=== PATIENT | male | born 1945 | race Caucasian/White ===

== ENCOUNTER 2016-07-23 10:12 | Inpatient (IN) | payer OTHER, MEDICARE ==
[~2016-07-23] VITALS: Ht 172.7 cm; Wt 61.5 kg
[2016-07-23] VITALS (10 sets, daily range): BP systolic 117–155; BP diastolic 67–90; PULSE 68–110; RESP 14–24; TEMP 97.3–98.4; O2SAT 82–100
[~2016-07-23 10:12] MED LIST: ALBU.5I INH; ALLO100T PO; ASPI81TA82 PO; ATOR10 PO; AZIT250T43 PO; DUONSOL2 NEB; ENAL10TA7 PO; FINA1TAB2 PO; FURO20 PO; LORA1TAB PO; METH4PAK PO; POTA10IN2 PO; TAMS0.4C4 PO
--- NOTE | 2016-07-23 10:43 | PD ---
HPI Chief Complaint: Fall Time Seen by Provider: 10:42 Travel History International Travel<30 days: No Contact w/Intl Traveler<30days: No Traveled to known affect area: No History of Present Illness HPI 70-year-old male came to the emergency room with history of being lethargic and altered mental status for past 4 days and progressively worsening. His brought him in. She is the one who is giving all the history since patient does seem quite lethargic. He fell one week ago and in the process ended up injuring his right side. Was complaining of pain on the right side and 4 days ago he fell again when he hit the back of his head and had a large laceration with bleeding. Patient on both occasions as per the had refused to come to the emergency room. Today he told his that he was extremely tired and he did not want to wake up. That's when the decided to bring him to the emergency room. Vital signs were suggestive of tachycardia. Patient kept falling asleep in the middle of answering my questions. As per the he has history of COPD and is a heavy smoker. He requires 2 L of oxygen via nasal cannula at home during night. 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 PFSH Past Medical History Narrative Medical List of his past medical history as reviewed from the nursing note. Anxiety: Yes Cancer: Yes (PROSTATE) Cardiac Catheterization: Yes Congestive Heart Failure: Yes COPD: Yes Diminished Hearing: No Endocrine: No GERD: Yes Hypertension: Yes Immune Disorder: No Musculoskeletal: No Neurologic: No Respiratory: Yes Radiation Therapy: Yes (SEED IMPLANT) Tetanus Vaccination: > 5 Years Influenza Vaccination: No Past Surgical History Eye Surgery: Yes (LEFT EYE, VESSELL OCCLUSION NO SURGERY) Prostatectomy: Yes Social History Alcohol Use: Yes (VERY LITTLE ) Tobacco Use: Yes (< 1PPD) Substance Use: No Allergies-Medications (Allergen,Severity, Reaction): Coded Allergies: Levaquin (Verified Allergy, Severe, nerve damage, 07/23/16) Comments List of his allergies reviewed from the nursing note. Reported Meds & Prescriptions Reported Meds & Active Scripts Active Reported Tamsulosin (Tamsulosin HCl) 0.4 Mg Cap 0.4 Mg PO DAILY Ativan (Lorazepam) 1 Mg Tab 1 Mg PO Q8H Lasix (Furosemide) 40 Mg Tab 40 Mg PO DAILY Prednisone 5 Mg Tab 5 Mg PO DAILY Multi Vitamin (Multiple Vitamin) 1 Tab Tab 1 Tab PO DAILY Aspirin Adult Low Strength (Aspirin) 81 Mg Tabdr 81 Mg PO DAILY Finasteride 5 Mg Tab 5 Mg PO DAILY Do not crush. Symbicort Inh (Budesonide/Formoterol Fumarate) 160-4.5 Mcg/Act Aero 2 Puff INH Q12HR Ventolin Hfa 18 GM Inh (Albuterol Sulfate) 90 Mcg/Act Aer 1-2 Puff INH Q4-6H PRN Allopurinol 100 Mg Tab 100 Mg PO DAILY Nexium (Esomeprazole DR) 40 Mg Capdr 40 Mg PO DAILY Atorvastatin (Atorvastatin Calcium) 10 Mg Tab 10 Mg PO HS Regranex Topical (Becaplermin) 0.01% Gel 1 Applic TOPICAL HS Apply a centimeter length of gel and spread over entire foot ulcer area. Leave gel on for approximately 12 hours/day. Zoloft (Sertraline HCl) 100 Mg Tab 200 Mg PO DAILY Narrative Medication List of his home medications reviewed from the nursing note. Review of Systems Except as stated in HPI: all other systems reviewed are Neg Physical Exam Narrative GENERAL: Lethargic, altered mental status, talking with a slurred speech, moderate distress, looks older than his age SKIN: Warm and dry. Multiple ecchymosis/bruising on all 4 extremities of different stages. HEAD: Atraumatic. Normocephalic. EYES: Pupils equal and round. No scleral icterus. No injection or drainage. ENT: No nasal bleeding or discharge. Mucous membranes pink and moist. NECK: Trachea midline. No JVD. CARDIOVASCULAR: Regular rate and rhythm. No murmur appreciated. RESPIRATORY: No accessory muscle use. Clear to auscultation. Breath sounds equal bilaterally. GASTROINTESTINAL: Abdomen soft, non-tender, nondistended. Hepatic and splenic margins not palpable. MUSCULOSKELETAL: No obvious deformities. No clubbing. No cyanosis. No edema. NEUROLOGICAL: GCS of 12. No obvious cranial nerve deficits. Motor grossly within normal limits. Slurred speech. PSYCHIATRIC: Unable to assess. Data Data Last Documented VS Vital Signs Date Time Temp Pulse Resp B/P Pulse Ox O2 Delivery O2 Flow Rate FiO2 07/23/16 13:31 98.4 07/23/16 12:38 106 18 149/75 100 Room Air 07/23/16 10:24 2 Orders Electrocardiogram (07/23/16 ) Basic Metabolic Panel (Bmp) (07/23/16 10:57) Complete Blood Count With Diff (07/23/16 10:57) Prothrombin Time / Inr (Pt) (07/23/16 10:57) Act Partial Throm Time (Ptt) (07/23/16 10:57) Type And Screen (07/23/16 10:57) Ct Brain W/O Iv Contrast(Rout) (07/23/16 10:57) Ct Cerv Spine W/O Contrast (07/23/16 10:57) Iv Access Insert/Monitor (07/23/16 10:57) Ecg Monitoring (07/23/16 10:57) Oximetry (07/23/16 10:57) Oxygen Administration (07/23/16 10:57) Sodium Chlor 0.9% 1000 Ml Inj (Ns 1000 M (07/23/16 10:57) Sodium Chloride 0.9% Flush (Ns Flush) (07/23/16 11:00) Ct Abd/Pel W/O Iv Contrast (07/23/16 ) Ct Thorax/ Chest Wo Iv Contras (07/23/16 ) Comprehensive Metabolic Panel (07/23/16 10:57) Urinalysis - C+S If Indicated (07/23/16 10:57) Creatine Kinase (Cpk) (07/23/16 11:04) Ammonia (07/23/16 12:20) Potassium Chlor 10 Meq Premix (Kcl 10 Me (07/23/16 12:45) Potassium Chloride (Kcl) (07/23/16 12:45) Admit Order (Ed Use Only) (07/23/16 13:40) Troponin I (07/23/16 13:40) Lactic Acid (07/23/16 13:40) Labs Laboratory Tests Test 07/23/16 07/23/16 11:11 12:32 White Blood Count 7.8 TH/MM3 Red Blood Count 4.41 MIL/MM3 Hemoglobin 14.0 GM/DL Hematocrit 41.3 % Mean Corpuscular Volume 93.7 FL Mean Corpuscular Hemoglobin 31.8 PG Mean Corpuscular Hemoglobin 34.0 % Concent Red Cell Distribution Width 15.2 % Platelet Count 186 TH/MM3 Mean Platelet Volume 8.3 FL Neutrophils (%) (Auto) 85.7 % Lymphocytes (%) (Auto) 8.0 % Monocytes (%) (Auto) 5.7 % Eosinophils (%) (Auto) 0.4 % Basophils (%) (Auto) 0.2 % Neutrophils # (Auto) 6.7 TH/MM3 Lymphocytes # (Auto) 0.6 TH/MM3 Monocytes # (Auto) 0.4 TH/MM3 Eosinophils # (Auto) 0.0 TH/MM3 Basophils # (Auto) 0.0 TH/MM3 CBC Comment DIFF FINAL Differential Comment Prothrombin Time 10.6 SEC Prothromb Time International 1.0 RATIO Ratio Activated Partial 30.8 SEC Thromboplast Time Sodium Level 138 MEQ/L Potassium Level 2.9 MEQ/L Chloride Level 93 MEQ/L Carbon Dioxide Level 38.1 MEQ/L Anion Gap 7 MEQ/L Blood Urea Nitrogen 21 MG/DL Creatinine 1.47 MG/DL Estimat Glomerular Filtration 47 ML/MIN Rate Random Glucose 113 MG/DL Calcium Level 9.3 MG/DL Total Bilirubin 0.4 MG/DL Aspartate Amino Transf 18 U/L (AST/SGOT) Alanine Aminotransferase 22 U/L (ALT/SGPT) Alkaline Phosphatase 107 U/L Total Creatine Kinase 68 U/L B-Type Natriuretic Peptide 123 PG/ML Total Protein 6.4 GM/DL Albumin 3.2 GM/DL Blood Type O POSITIVE Antibody Screen NEGATIVE Blood Bank Comment Urine Color LIGHT-YELLOW Urine Turbidity HAZY Urine pH 8.0 Urine Specific [place] 1.007 Urine Protein NEG mg/dL Urine Glucose (UA) NEG mg/dL Urine Ketones NEG mg/dL Urine Occult Blood NEG Urine Nitrite NEG Urine Bilirubin NEG Urine Urobilinogen LESS THAN 2.0 MG/DL Urine Leukocyte Esterase MOD Urine RBC 1 /hpf Urine WBC 2 /hpf Urine Squamous Epithelial 1 /hpf Cells Urine Hyaline Casts 1 /lpf Microscopic Urinalysis Comment CULT NOT INDICATED Ammonia LESS THAN 10 MCMOL/L MDM Medical Decision Making Medical Screen Exam Complete: Yes Emergency Medical Condition: Yes Medical Record Reviewed: Yes Interpretation(s) Twelve-lead EKG was reviewed by me. Normal sinus rhythm, left axis deviation, multiple PVCs, tachycardia. Heart rate of 107 bpm. Differential Diagnosis Hyperammonemia, nitrite abnormalities, intracranial bleed, sepsis Narrative Course 1:38 PM blood test results of back and shows renal insufficiency. CAT scans are in general within normal limit except for CT thorax which shows right pleural effusion. I will order lactic acid and troponin as well. Potassium was low which I am replacing. I spoke with the resident and I have admitted this patient. Procedures EKG Prior to Arrival: Yes Diagnosis Primary Impression: Altered mental status Qualified Code: R40.0 - Somnolence Additional Impressions: Dehydration Acute hypokalemia Renal insufficiency Rib fracture Qualified Code: S22.31XA - Closed fracture of one rib of right side, initial encounter Pleural effusion Admitting Information Admitting Physician Requests: Admit Frank Sweeney MD Jul 23, 2016 10:43
[2016-07-23] MEDS ORDERED: SODIUM CHLOR 0.9% 1000 ML INJ 1,000 ML IV SCH (10:57)
[2016-07-23] MEDS ORDERED: SODIUM CHLORIDE 0.9% FLUSH 5 ML FLUSH IVF PRN (11:00)
[2016-07-23] MEDS ORDERED: VENTAER INH (11:03)
[2016-07-23] MEDS ORDERED: ZOLO100T PO (11:03)
[2016-07-23] MEDS ORDERED: ALLO100T PO (11:03)
[2016-07-23] MEDS ORDERED: ATOR10TA15 PO (11:03)
[2016-07-23] MEDS ORDERED: NEXI40CA PO (11:03)
[2016-07-23] MEDS ORDERED: REGR0.01 TOPICAL (11:03)
[2016-07-23] MEDS ORDERED: FURO1TAB60 PO (11:04)
[2016-07-23] MEDS ORDERED: LORA-474 PO (11:04)
[2016-07-23] MEDS ORDERED: MULT-135 PO (11:04)
[2016-07-23] MEDS ORDERED: PRED5TAB PO (11:04)
[2016-07-23] MEDS ORDERED: FINA5TAB2 PO (11:04)
[2016-07-23] MEDS ORDERED: SYMB160A INH (11:04)
[2016-07-23] MEDS ORDERED: ASPI1TAB91 PO (11:04)
[2016-07-23] MEDS ORDERED: TAMS0.4C4 PO (11:04)
[2016-07-23 11:28] LABS: AUTOMATED NEUTROPHIL # 6.7 TH/MM3 (1.8-7.7); BASOPHIL % 0.2 % (0.0-2.0); EOSINOPHIL % 0.4 % (0.0-4.0); HEMATOCRIT 41.3 % (39.0-51.0); HEMO FLAGS DIFF FINAL; LYMPHOCYTE # 0.6 TH/MM3 (1.0-4.8); MEAN CELL VOLUME 93.7 FL (80.0-100.0); MEAN CORPUSCULAR HEMOGLOBIN 31.8 PG (27.0-34.0); MONO % 5.7 % (0.0-8.0); NEUT % 85.7 % (16.0-70.0); PLATELET COUNT 186 TH/MM3 (150-450); RED BLOOD COUNT 4.41 MIL/MM3 (4.50-5.90); RED CELL DISTRIBUTION WIDTH 15.2 % (11.6-17.2); WHITE BLOOD COUNT 7.8 TH/MM3 (4.0-11.0)
[2016-07-23 11:34] LABS: APTT (PATIENT) 30.8 SEC (24.3-30.1); PROTHROMBIN TIME - PATIENT 10.6 SEC (9.8-11.6)
[2016-07-23 12:12] LABS: ALKALINE PHOSPHATASE 107 U/L (45-117); ALT (GPT) 22 U/L (12-78); ANION GAP 7 MEQ/L (5-15); AST (GOT) 18 U/L (15-37); BICARBONATE 38.1 MEQ/L (21.0-32.0); BLOOD UREA NITROGEN 21 MG/DL (7-18); CHLORIDE 93 MEQ/L (98-107); GLOMERULAR FILTRATION RATE 47 ML/MIN (>89); SODIUM (NA) 138 MEQ/L (136-145); TOTAL BILIRUBIN ADULT 0.4 MG/DL (0.2-1.0)
[2016-07-23 12:16] LABS: POTASSIUM 2.9 MEQ/L (3.5-5.1)
--- NOTE | 2016-07-23 12:34 | RADRPT ---
EXAM DATE/TIME: 07/23/2016 11:34 [facility] COMPARISON: No previous studies available for comparison. INDICATIONS : Fall one week ago now patient has been confused for four days. RADIATION DOSE: 54.70 CTDIvol (mGy) MEDICAL HISTORY : Congestive hearth failure. Hypertension. Chronic obstructive pulmonary disease. Renal disease, prosta te ca SURGICAL HISTORY : Prostatectomy. ENCOUNTER: Initial ACUITY: 4 - 6 days PAIN SCALE: 8/10 LOCATION: cranial TECHNIQUE: Multiple contiguous axial images were obtained of the head. Using automated exposure control and adj ustment of the mA and/or kV according to patient size, radiation dose was kept as low as reasonably a chievable to obtain optimal diagnostic quality images. FINDINGS: CEREBRUM: The ventricles are normal for age. Periventricular areas of diminished attenuation are characteristi c of significant small vessel ischemic demyelination. No evidence of midline shift, mass lesion, hemo rrhage or acute infarction. No extra-axial fluid collections are seen. POSTERIOR FOSSA: The cerebellum and brainstem are intact. The 4th ventricle is midline. The cerebellopontine angle i s unremarkable. EXTRACRANIAL: The visualized portion of the orbits is intact. Minimal chronic sinus disease in the left sphenoid SKULL: The calvaria is intact. No evidence of skull fracture. CONCLUSION: 1. Chronic changes with significant periventricular small vessel ischemic demyelination. 2. No acute intracranial process, trauma or fracture. Higinio Mcdonald MD on July 23, 2016 at 12:31 Board Certified Radiologist. This report was verified electronically.
--- NOTE | 2016-07-23 12:40 | RADRPT ---
EXAM DATE/TIME: 07/23/2016 11:34 [facility] COMPARISON: No previous studies available for comparison. INDICATIONS : Fall one week ago rt side pain, confusion RADIATION DOSE: 22.98 CTDIvol (mGy) MEDICAL HISTORY : Congestive heart failure. Hypertension. Chronic obstructive pulmonary disease.Renal disease prostate ca SURGICAL HISTORY : Prostatectomy. ENCOUNTER: Initial ACUITY: 4 - 6 days PAIN SCALE: 8/10 LOCATION: Right neck TECHNIQUE: Volumetric scanning of the cervical spine was performed. Multiplanar reconstructions in the sagittal, coronal and oblique axial planes were performed. Using automated exposure control and adjustment o f the mA and/or kV according to patient size, radiation dose was kept as low as reasonably achievable to obtain optimal diagnostic quality images. FINDINGS: There is retrolisthesis of C4 relationship to the adjacent levels. The atlantoaxial relationship is w ithin normal limits. There is no prevertebral soft tissue swelling present. No fracture or dislocatio n is identified. There is degenerative disc disease at C3-C4 through C6-C7, most severe at C3-C4. The visualized portions of the posterior fossa, paraspinous soft tissues, and upper lung zones demons trate no acute abnormality. CONCLUSION: Multilevel degenerative change of the cervical spine. No fracture or acute cervical spine abnormality is identified. Jevon Cam MD on July 23, 2016 at 12:35 Board Certified Radiologist. This report was verified electronically.
[2016-07-23] MEDS ORDERED: POTASSIUM CHLORIDE 20 MEQ CONTROLLED RELEASE TAB PO ONE (12:45)
[2016-07-23] MEDS ORDERED: POTASSIUM CHLOR 10 MEQ PREMIX 100 ML IV ONE (12:45)
[2016-07-23 12:51] LABS: BLOOD, URINE NEG (NEG); COMMENT (UR) CULT NOT INDICATED; CULTURE IF INDICATED CULT NOT INDICATED; GLUCOSE,URINE NEG (NEG); HYALINE CAST, URINE 1 /lpf (RARE); KETONE, URINE NEG (NEG); NITRITE,URINE NEG (NEG); SQUAMOUS EPITHELIAL CELL URINE 1 /hpf (0-5); URINE COLOR LIGHT-YELLOW (YELLW/STRAW)
--- NOTE | 2016-07-23 13:42 | RADRPT ---
EXAM DATE/TIME: 07/23/2016 11:52 [facility] COMPARISON: CHEST SINGLE AP, November 26, 2013, 4:51. INDICATIONS : Fall one week ago,right rib pain. RADIATION DOSE: 11.88 CTDIvol (mGy) ; Combined studies - Thorax/Abdomen/Pelvis MEDICAL HISTORY : Chronic obstructive pulmonary disease. Congestive heart failure. Hypertension. Prostate ca renal dise ase SURGICAL HISTORY : Prostatectomy. ENCOUNTER: Initial ACUITY: 1 day PAIN SCALE: 8/10 LOCATION: Right chest TECHNIQUE: Volumetric scanning of the chest was performed. Using automated exposure control and adjustment of t he mA and/or kV according to patient size, radiation dose was kept as low as reasonably achievable to obtain optimal diagnostic quality images. FINDINGS: LUNGS: Bilateral emphysematous changes with volume loss in the right hemithorax. Right-sided effusion concom itant atelectatic changes. Nonspecific nodular densities in the superior segments of both lower lobes . PLEURAE: Small right-sided effusion. MEDIASTINUM: The heart and great vessels demonstrate no acute abnormality. There is no mediastinal or hilar lymph adenopathy. Dense atherosclerotic calcification of the coronary arteries AXILLAE: Within normal limits. No lymphadenopathy. MUSCULOSKELETAL: Chronic compression fractures of what I believe is T5 and T6 with a vertebral plana configuration of T5. There is an acute fracture at the medial aspect of the hand right. MISCELLANEOUS: The visualized upper abdominal organs demonstrate no acute abnormality. A small sliding-type hiatal h ernia CONCLUSION: 1. Acute fracture through the medial aspect of the right T10 rib. 2. Chronic appearing compression fractures through what I believe is T5 and T6 with a vertebral plana configuration of T5. 3. Line loss in the right hemithorax with bilateral emphysematous changes, nonspecific parenchymal no dular densities in the superior segments of both lower lobes and a small right-sided effusion. 4. Small hiatal hernia. Higinio Mcdonald MD on July 23, 2016 at 13:11 Board Certified Radiologist. This report was verified electronically.
[2016-07-23] MEDS ORDERED: SODIUM CHLORID 0.9% 500 ML INJ 500 ML IV ONE (14:00)
--- NOTE | 2016-07-23 14:07 | HHI.HP ---
HPI Service Family Medicine Primary Care Physician Ricardo Vázquez MD Admission Diagnosis altered mental status, dehydration, hypokalemia Diagnoses: International Travel<30 Days: No Contact w/Intl Traveler<30days: No Known Affected Area: No History of Present Illness 70y male with CHF, COPD, lower extremity weakness, and repeated falls presents with altered mental status x4 days and lethargy. is in room and contributes the majority of the history. At baseline, pt is alert and oriented , walks with walker, and uses 2L home O2 at night. He is limited in his ADLs secondary to lower extremity weakness and neuropathy caused by Levaquin toxicity 11/2015 for URI. Was in rehab for 9 weeks recovering from this event and doing better, until fall one week ago and then again three days ago (Wednesday) . Both of these falls were mechanical in nature from the patient stepping down from the kitchen to linoleum while using his walker. At first fall, landed on R side. At second fall, hit head, causing significant bleeding and was disoriented, but refused to go to doctor. He has been mumbling more over the past week, per . Pt believes he is thinking as he normally does and is chiefly concerned with pain in R torso. (Maty Buck MD R1) Review of Systems ROS Limitations: Poor Historian Constitutional: DENIES: Fever, Chills Respiratory: DENIES: Sputum production, Shortness of breath Cardiovascular: DENIES: Chest pain Genitourinary: COMPLAINS OF: Urinary incontinence Neurologic: COMPLAINS OF: Localized weakness, Speech Problems (mumbling), Poor Balance Psychiatric: COMPLAINS OF: Anxiety, Confusion, Depression, Agitation (Maty Buck MD R1) Past Family Social History Past Medical History COPD Neuropathy Gout Ulcer, L foot (since 08/2015) HLD CHF Depression/Anxiety Hx prostate cancer (1998) Past Surgical History Per EMR Reported Medications Tamsulosin (Tamsulosin HCl) 0.4 Mg Cap 0.4 Mg PO DAILY Ativan (Lorazepam) 1 Mg Tab 1 Mg PO Q8H Lasix (Furosemide) 40 Mg Tab 40 Mg PO DAILY Prednisone 5 Mg Tab 5 Mg PO DAILY Multi Vitamin (Multiple Vitamin) 1 Tab Tab 1 Tab PO DAILY Aspirin Adult Low Strength (Aspirin) 81 Mg Tabdr 81 Mg PO DAILY Finasteride 5 Mg Tab 5 Mg PO DAILY Do not crush. Symbicort Inh (Budesonide/Formoterol Fumarate) 160-4.5 Mcg/Act Aero 2 Puff INH Q12HR Ventolin Hfa 18 GM Inh (Albuterol Sulfate) 90 Mcg/Act Aer 1-2 Puff INH Q4-6H PRN Allopurinol 100 Mg Tab 100 Mg PO DAILY Nexium (Esomeprazole DR) 40 Mg Capdr 40 Mg PO DAILY Atorvastatin (Atorvastatin Calcium) 10 Mg Tab 10 Mg PO HS Regranex Topical (Becaplermin) 0.01% Gel 1 Applic TOPICAL HS Apply a centimeter length of gel and spread over entire foot ulcer area. Leave gel on for approximately 12 hours/day. 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 Lying on R side, semi-curled. Appears to be positioned uncomfortably. Irritated. DERM: Warm and dry. Bruises in various stages healing on forearms bilaterally, knees, shins. L [place] with very prominant scabbing and erythema. HEENT: PERRL. EOMI. MMM. Ptosis R eyelid CV: RRR. No murmurs or gallops. RESP: Breathing well on nasal canula GI: Abdomen non-tender, non-distended MSK: Moves all four limbs against gravity. Ulcer of L ball of foot ~2cm x 1cm oval, with ogden purulent discharge. Covered in bandage c/d/i. NEURO: AAOx3 to person, city/state, year/month/day+2, and reason for hospitalization. Sensation intact to light touch in V1-V3, UE, LE. Able to lift limbs against gravity. PSYCH: At times, not answers question asked secondary to hearing difficulty. Will answer appropriately when question repeated. Suspect baseline dementia. Laboratory Laboratory Tests Test 07/23/16 07/23/16 11:11 12:32 White Blood Count 7.8 Red Blood Count 4.41 Hemoglobin 14.0 Hematocrit 41.3 Mean Corpuscular Volume 93.7 Mean Corpuscular Hemoglobin 31.8 Mean Corpuscular Hemoglobin 34.0 Concent Red Cell Distribution Width 15.2 Platelet Count 186 Mean Platelet Volume 8.3 Neutrophils (%) (Auto) 85.7 Lymphocytes (%) (Auto) 8.0 Monocytes (%) (Auto) 5.7 Eosinophils (%) (Auto) 0.4 Basophils (%) (Auto) 0.2 Neutrophils # (Auto) 6.7 Lymphocytes # (Auto) 0.6 Monocytes # (Auto) 0.4 Eosinophils # (Auto) 0.0 Basophils # (Auto) 0.0 CBC Comment DIFF FINAL Differential Comment Prothrombin Time 10.6 Prothromb Time International 1.0 Ratio Activated Partial 30.8 Thromboplast Time Sodium Level 138 Potassium Level 2.9 Chloride Level 93 Carbon Dioxide Level 38.1 Anion Gap 7 Blood Urea Nitrogen 21 Creatinine 1.47 Estimat Glomerular Filtration 47 Rate Random Glucose 113 Calcium Level 9.3 Total Bilirubin 0.4 Aspartate Amino Transf 18 (AST/SGOT) Alanine Aminotransferase 22 (ALT/SGPT) Alkaline Phosphatase 107 Total Creatine Kinase 68 Total Protein 6.4 Albumin 3.2 Blood Type O POSITIVE Antibody Screen NEGATIVE Blood Bank Comment Urine Color LIGHT-YELLOW Urine Turbidity HAZY Urine pH 8.0 Urine Specific [place] 1.007 Urine Protein NEG Urine Glucose (UA) NEG Urine Ketones NEG Urine Occult Blood NEG Urine Nitrite NEG Urine Bilirubin NEG Urine Urobilinogen LESS THAN 2.0 Urine Leukocyte Esterase MOD Urine RBC 1 Urine WBC 2 Urine Squamous Epithelial 1 Cells Urine Hyaline Casts 1 Microscopic Urinalysis Comment CULT NOT INDICATED Ammonia LESS THAN 10 (Maty Buck MD R1) Result Diagram: 07/23/16 1111 07/23/16 1111 Imaging Last Impressions Head CT 07/23/16 1057 Signed Impressions: Service Date/Time: June 11:34 - CONCLUSION: 1. Chronic changes with significant periventricular small vessel ischemic demyelination. 2. No acute intracranial process, trauma or fracture. Higinio Mcdonald MD Cervical Spine CT 07/23/16 1057 Signed Impressions: Service Date/Time: June 11:34 - CONCLUSION: Multilevel degenerative change of the cervical spine. No fracture or acute cervical spine abnormality is identified. Jevon Cam MD Chest CT 07/23/16 0000 Signed Impressions: Service Date/Time: June 11:52 - CONCLUSION: 1. Acute fracture through the medial aspect of the right T10 rib. 2. Chronic appearing compression fractures through what I believe is T5 and T6 with a vertebral plana configuration of T5. 3. Line loss in the right hemithorax with bilateral emphysematous changes, nonspecific parenchymal nodular densities in the superior segments of both lower lobes and a small right-sided effusion. 4. Small hiatal hernia. Higinio Mcdonald MD Abdomen/Pelvis CT 07/23/16 0000 Signed Impressions: Service Date/Time: June 11:52 - CONCLUSION: 1. Multiple minimally displaced right-sided rib fractures from 8 through 11 with associated small effusion/hemothorax. No pneumothorax. 2. Extensive diverticular disease throughout the colon without diverticulitis. 3. Prostatic seeds. 4. Small hiatal hernia. Higinio Mcdonald MD (Maty Buck MD R1) Assessment and Plan Assessment and Plan 70y male presenting with altered mental status x4 days and lethargy x1 day, hospitalized 07/23/16 for fall, R rib fracture, and R pleural effusion. Code Status Alternative Code: no CPR, yes ventilation Discussed Condition With SDW: Dr. Trujillo DW: Dr. Natalie Delaney (Maty Buck MD R1) Attending Attestation THIS CASE WAS DISCUSSED WITH THE RESIDENT PHYSICIANS. I HAVE REVIEWED THE RECORD AND AGREE WITH THE ABOVE NOTE AND PLAN OF CARE WAS DISCUSSED. I HAVE AUTHORIZED THE ORDER FOR ADMISSION TO AN IN-PATIENT STATUS. (Kaz Sharma MD) Problem List: (1) Altered mental status Status: Resolved Plan: Presented to ED extremely lethargic, difficult to rouse, falling asleep during the interview. Several hours later at time of admission, AMS resolved. Pt AAOx3 to person, city/state, and year/month/day+2. AMS likely secondary to acute hypoxia and hypercarbia from rib fracture. Suspect underlying component of dementia (alzheimers vs vascular vs other). CT head negative for acute process. ABG with pH 7.44 and hypercarbia. Trop neg x1. EKG unchanged from previous. -Continue oxygen supplementation, as needed (2) Repeated falls Status: Acute Plan: Hx neuropathy and LE weakness secondary to Levaquin toxicity. Follows with neurologist at home (Dr Maldonado) -PT eval and treat -OOB with assistance (3) Rib fracture Status: Acute Plan: Secondary to fall one week prior onto R side. CT Thorax (07/23): Fracture T5, T6, T10, small hiatal hernia and small R sided plural effusion Plan -Pain control -Ibuprofen 600mg NARGIS -Morphine 1mg IV PRN q4h breakthrough pain (4) Acute hypokalemia Status: Acute Plan: History of hypokalemia on last admission secondary to noncompliance with Lasix. This visit, K 2.9. Received KCl 20meq PO and KCl 10meq IV in ED -Re-check K this PM, replete as necessary, goal 3.5+ -EKG: Tachycardic to 110. Frequent PVCs. Marked LAD. No change from previous. 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 Chronic purulent discharge. Likely poor wound healing secondary to significant PAD -Wound care consulted -Change bandage daily (7) COPD (chronic obstructive pulmonary disease) Status: Chronic Plan: 2L home O2. -Continue home Symbicort 2 puff BID -DuoNeb q4h PRN SOB/wheezing -Incentive spirometry -COPD educator consulted (8) Pleural effusion Status: Acute Plan: Per CT thorax -Diuresis, see plan for CHF (9) BPH (benign prostatic hyperplasia) Status: Chronic Plan: -continue home tamsulosin and finasteride (10) Anxiety and depression Status: Chronic Plan: -Continue home Zoloft and Ativan 1mg q8h NARGIS (11) Gout Status: Chronic Plan: Continue home Allopurinol 100mg daily (12) GERD (gastroesophageal reflux disease) Status: Chronic Plan: Continue home Nexium 40mg daily (13) CHF (congestive heart failure) Status: Chronic Plan: BNP elevated at 150. -Continue Aspiring 81mg -Continue home Lasix 40mg daily -Continue home statin -Monitor I/Os (14) CKD (chronic kidney disease) stage 3, GFR 30-59 ml/min Status: Chronic Plan: Baseline Cr 1.4 from visit 2015. Cr 1.4 on admission -Avoid nephrotoxic agents -Renally dose medications (15) Fluids, Electrolytes, Nutrition, Prophylaxis Status: Acute Plan: Fluids: Per PO Electrolytes: hypokalemia, monitor and replete PRN Nutrition: Heart Healthy Diet DVT ppx: Lovenox 30mg SQ daily GI ppx: continue home Nexium OOB: with assistance (Maty Buck MD R1) Physician Certification 2 Midnight Certification Type: Admission for Inpatient Services Order for Inpatient Services The services are ordered in accordance with Medicare regulations or non- Medicare payer requirements, as applicable. In the case of services not specified as inpatient-only, they are appropriately provided as inpatient services in accordance with the 2-midnight benchmark. Estimated LOS (days): 2 days is the estimated time the patient will need to remain in the hospital, assuming treatment plan goals are met and no additional complications. Post-Hospital Plan: Home (Maty Buck MD R1) Problem Qualifiers (1) Altered mental status: Qualified Code: R40.0 - Somnolence (2) Rib fracture: Qualified Code: S22.31XA - Closed fracture of one rib of right side, initial encounter Maty Buck MD R1 Jul 23, 2016 14:07 Kaz Sharma MD Jul 24, 2016 11:34
--- NOTE | 2016-07-23 14:20 | RADRPT ---
EXAM DATE/TIME: 07/23/2016 11:52 [facility] COMPARISON: No previous studies available for comparison. INDICATIONS : Fall one week ago right side rib pain. ORAL CONTRAST: No oral contrast ingested. RADIATION DOSE: 11.88 CTDIvol (mGy) ; Combined studies - Thorax/Abdomen/Pelvis MEDICAL HISTORY : Congestive hearrt failure. Hypertension. Chronic obstructive pulmonary disease.Renal disease prostate ca SURGICAL HISTORY : Prostatectomy. ENCOUNTER: Initial ACUITY: 4 - 6 days PAIN SCALE: 8/10 LOCATION: Right Abdomen TECHNIQUE: Volumetric scanning of the abdomen and pelvis was performed. Using automated exposure control and ad justment of the mA and/or kV according to patient size, radiation dose was kept as low as reasonably achievable to obtain optimal diagnostic quality images. FINDINGS: LOWER LUNGS: A small right-sided effusion with concomitant atelectatic changes. Small hiatal hernia. LIVER: Homogeneous density without lesion. There is no dilation of the biliary tree. No calcified gallston es. SPLEEN: Normal size without lesion. PANCREAS: Within normal limits. KIDNEYS: Normal in size and shape. There is no mass, stone, or hydronephrosis. ADRENAL GLANDS: Within normal limits. VASCULAR: There is no aortic aneurysm. BOWEL/MESENTERY: Angle of extensive diverticular disease, particularly in the region of the sigmoid without diverticul itis ABDOMINAL WALL: Within normal limits. RETROPERITONEUM: There is no lymphadenopathy. BLADDER: No wall thickening or mass. REPRODUCTIVE: Multiple prostatic seeds. INGUINAL: There is no lymphadenopathy or hernia. MUSCULOSKELETAL: Multiple acute right-sided rib fractures involving numbers 8 through 11 laterally and posteriorly. CONCLUSION: 1. Multiple minimally displaced right-sided rib fractures from 8 through 11 with associated small eff usion/hemothorax. No pneumothorax. 2. Extensive diverticular disease throughout the colon without diverticulitis. 3. Prostatic seeds. 4. Small hiatal hernia. Higinio Mcdonald MD on July 23, 2016 at 13:48 Board Certified Radiologist. This report was verified electronically.
[2016-07-23 14:31] LABS: BLOOD GAS BASE EXCESS 10.3 mmol/L (-2-2); BLOOD GAS CARBOXYHEMOGLOBIN 2.1 % (0-4); BLOOD GAS HCO3 35 mmol/L (22-26); BLOOD GAS METHEMOGLOBIN 1.6 % (0-2); BLOOD GAS O2 HGB SATURATION 92 % (90-100); BLOOD GAS OXYGEN CONTENT 16.8 Vol % (12.0-20.0); BLOOD GAS PCO2 53 mmHg (38-42); BLOOD GAS PO2 85 mmHG (61-120); BLOOD GAS TOTAL HGB 12.9 G/DL (12.0-16.0); TEMP CORR TO 98.6
[2016-07-23 14:32] LABS: CRITICAL VALUE YES; DRAW SITE RT RADIAL; LITER FLOW 3 L/M; NUMBER OF ARTERIAL PUNCTURES 1; OXYGEN DEVICE NASAL CANNULA; STAT YES; ULNAR PULSE PRESENT
[2016-07-23] MEDS: LORazepam 1 MG TAB PO SCH ×2 (16:02→22:00)
--- NOTE | 2016-07-23 16:22 | EKG ---
Date Performed: 07/23/2016 Time Performed: 10:29:48 PTAGE: 70 years EKG: SINUS TACHYCARDIA WITH FREQUENT VENTRICULAR PREMATURE COMPLEXES MARKED LEFT AXIS DEVIATION SEPTAL MYOCARDIAL INFARCTION Compared to prior tracing no significant change ABNORMAL ECG PREVIOUS TRACING : 11/26/2013 04.35 DOCTOR: Kishor Vera Interpretating Date/Time 07/23/2016 16:20:25
[2016-07-23] MEDS: RESP: ALBUTEROL 2.5 MG/IPRATROPIUM 0.5 MG NEB (PRN) NEB ×2 (19:45→23:15)
[2016-07-23] MEDS ORDERED: MORPHINE SULFATE 4 MG/ML INJ IV PUSH PRN (21:30)
[2016-07-23] MEDS ORDERED: NICOTINE 4 MG/GUM CHEW PRN (21:30)
[2016-07-23] MEDS: BUDESONIDE-FORMOTEROL 160/4.5 MCG INHALER INH SCH (21:46)
[2016-07-23] MEDS: ATORVASTATIN 10 MG TAB PO SCH (21:47)
[2016-07-23] MEDS: NAPROXEN 375 MG TAB PO SCH (22:00)
[2016-07-24] VITALS (21 sets, daily range): BP systolic 108–128; BP diastolic 59–75; PULSE 68–115; RESP 18–24; TEMP 98–98.5; O2SAT 94–98
[2016-07-24] MEDS: LORazepam 1 MG TAB PO SCH ×3 (01:13→21:19)
[2016-07-24] MEDS: NAPROXEN 375 MG TAB PO SCH ×4 (01:15→21:18)
[2016-07-24] MEDS: RESP: ALBUTEROL 2.5 MG/IPRATROPIUM 0.5 MG NEB (PRN) NEB ×3 (03:37→14:14)
[2016-07-24] MEDS ORDERED: POTASSIUM CHLORIDE 20 MEQ CONTROLLED RELEASE TAB PO ONE (06:30)
[2016-07-24 06:58] LABS: AUTOMATED NEUTROPHIL # 4.3 TH/MM3 (1.8-7.7); BASOPHIL % 0.4 % (0.0-2.0); EOSINOPHIL # 0.1 TH/MM3 (0-0.4); EOSINOPHIL % 1.7 % (0.0-4.0); HEMATOCRIT 35.1 % (39.0-51.0); HEMO FLAGS DIFF FINAL; LYMPHOCYTE # 1.2 TH/MM3 (1.0-4.8); MEAN CELL VOLUME 93.3 FL (80.0-100.0); MEAN CORPUSCULAR HEMOGLOBIN 31.7 PG (27.0-34.0); MEAN CORPUSCULAR HGB CONC 33.9 % (32.0-36.0); MONO % 7.5 % (0.0-8.0); NEUT % 70.4 % (16.0-70.0); PLATELET COUNT 165 TH/MM3 (150-450); RED BLOOD COUNT 3.76 MIL/MM3 (4.50-5.90); RED CELL DISTRIBUTION WIDTH 14.9 % (11.6-17.2); WHITE BLOOD COUNT 6.1 TH/MM3 (4.0-11.0)
[2016-07-24 07:25] LABS: ALKALINE PHOSPHATASE 90 U/L (45-117); ALT (GPT) 17 U/L (12-78); ANION GAP 8 MEQ/L (5-15); AST (GOT) 16 U/L (15-37); BICARBONATE 35.3 MEQ/L (21.0-32.0); BLOOD UREA NITROGEN 19 MG/DL (7-18); CHLORIDE 99 MEQ/L (98-107); GLOMERULAR FILTRATION RATE 60 ML/MIN (>89); SODIUM (NA) 142 MEQ/L (136-145); TOTAL BILIRUBIN ADULT 0.4 MG/DL (0.2-1.0)
[2016-07-24 07:43] LABS: POTASSIUM 2.9 MEQ/L (3.5-5.1)
[2016-07-24] MEDS ORDERED: methylPREDNISolone SOD SUCC 125 MG/2 ML VIAL IV PUSH ONE (08:30)
[2016-07-24] MEDS: BUDESONIDE-FORMOTEROL 160/4.5 MCG INHALER INH SCH ×2 (08:55→20:17)
[2016-07-24] MEDS: TAMSULOSIN HCL 0.4 MG CAP PO SCH (08:56)
[2016-07-24] MEDS: PANTOPRAZOLE SOD 40 MG DELAYED RELEASE TAB PO SCH (08:56)
[2016-07-24] MEDS: AZITHROMYCIN 250 MG TAB PO SCH (08:56)
[2016-07-24] MEDS: ALLOPURINOL 100 MG TAB PO SCH (08:56)
[2016-07-24] MEDS: FINASTERIDE 5 MG TAB PO SCH (08:56)
[2016-07-24] MEDS: SERTRALINE HCL 100 MG TAB PO SCH (08:56)
[2016-07-24] MEDS: ASPIRIN EC 81 MG TABEC PO SCH (08:56)
[2016-07-24] MEDS: NICOTINE 21 MG/24 HR PATCH TD SCH (08:57)
[2016-07-24] MEDS: FUROSEMIDE 40 MG TAB PO SCH (08:57)
[2016-07-24] MEDS: cefTRIAXone INJ 1,000 MG in SODIUM CHLORIDE 0.9% INJ 100 ML IV SCH (08:58)
--- NOTE | 2016-07-24 09:12 | HHI.FPPN ---
Subjective Remarks FM Attending Note: Patient seen and examined. S: Chart and all resident physician notes reviewed. In summary this is a 70 year old male who was admitted with an admission diagnosis of Altered Mental Status, Dehydration, Hypokalemia. This patient has a significant h/o COPD. Also with PAD and chronic wound of his right foot under continued care by podiatry. Previous osteomyelitis with reported neuropathy and gait instability associated with prolonged antibiotic treatment with Levaquin. Falls have occurred recently with noted rib fx's and older compression fx's of the spine noted on imaging studies. Objective Vitals Vital Signs Date Time Temp Pulse Resp B/P Pulse Ox O2 Delivery O2 Flow Rate FiO2 07/24/16 08:08 98 Nasal Cannula 2.50 07/24/16 06:00 68 07/24/16 05:00 69 07/24/16 04:00 100 07/24/16 03:05 108 07/24/16 03:04 98.3 101 24 127/68 98 07/24/16 02:00 101 07/24/16 01:00 105 07/24/16 00:00 93 07/23/16 23:15 96 Nasal Cannula 4.00 07/23/16 23:00 98.3 101 24 140/81 94 07/23/16 23:00 110 07/23/16 21:26 99 20 142/80 94 Nasal Cannula 2 07/23/16 19:07 110 20 140/90 94 Nasal Cannula 2 07/23/16 16:03 107 22 117/88 98 Nasal Cannula 3 07/23/16 13:31 98.4 07/23/16 12:38 106 18 149/75 100 Room Air 07/23/16 11:25 96 Room Air 07/23/16 11:25 99 Room Air 07/23/16 10:30 103 20 155/67 94 Room Air 07/23/16 10:24 Nasal Cannula 2 07/23/16 10:14 97.3 68 14 144/73 82 Room Air I/O 07/23/16 07/23/16 07/23/16 07/24/16 07/24/16 07/24/16 07:00 15:00 23:00 07:00 15:00 23:00 Intake Total 420 ml Balance 420 ml Intake Oral 420 ml # Voids 2 Result Diagram: 07/24/1661907/24/16619 Other Results Item Value Date Time B-Type Natriuretic Peptide 123 PG/ML H 07/23/16 1111 Total Bilirubin 0.4 MG/DL 07/23/16 1111 Aspartate Amino Transf (AST/SGOT) 18 U/L 07/23/16 1111 Alanine Aminotransferase (ALT/SGPT) 22 U/L 07/23/16 1111 Alkaline Phosphatase 107 U/L 07/23/16 1111 Ammonia LESS THAN 10 MCMOL/L L 07/23/16 1232 Troponin I 0.04 NG/ML 07/23/16 1419 Arterial Blood pH 7.44 H 07/23/16 1421 Arterial Blood Partial Pressure O2 85 mmHG 07/23/16 1421 Arterial Blood Partial Pressure CO2 53 mmHg *H 07/23/16 1421 Blood Gas HCO3 35 mmol/L H 07/23/16 1421 Urine Specific [place] 1.007 07/23/16 1232 Urine Nitrite NEG 07/23/16 1232 Urine Leukocyte Esterase MOD H 07/23/16 1232 Urine RBC 1 /hpf 07/23/16 1232 Urine WBC 2 /hpf 07/23/16 1232 Imaging Last [address] 07/23/16 1057 Signed Impressions: Service Date/Time: June 11:34 - CONCLUSION: 1. Chronic changes with significant periventricular small vessel ischemic demyelination. 2. No acute intracranial process, trauma or fracture. Higinio Mcdonald MD Cervical Spine CT 07/23/16 1057 Signed Impressions: Service Date/Time: June 11:34 - CONCLUSION: Multilevel degenerative change of the cervical spine. No fracture or acute cervical spine abnormality is identified. Jevon Cam MD Chest CT 07/23/16 0000 Signed Impressions: Service Date/Time: June 11:52 - CONCLUSION: 1. Acute fracture through the medial aspect of the right T10 rib. 2. Chronic appearing compression fractures through what I believe is T5 and T6 with a vertebral plana configuration of T5. 3. Line loss in the right hemithorax with bilateral emphysematous changes, nonspecific parenchymal nodular densities in the superior segments of both lower lobes and a small right-sided effusion. 4. Small hiatal hernia. Higinio Mcdonald MD Abdomen/Pelvis CT 07/23/16 0000 Signed Impressions: Service Date/Time: June 11:52 - CONCLUSION: 1. Multiple minimally displaced right-sided rib fractures from 8 through 11 with associated small effusion/hemothorax. No pneumothorax. 2. Extensive diverticular disease throughout the colon without diverticulitis. 3. Prostatic seeds. 4. Small hiatal hernia. Higinio Mcdonald MD Objective Remarks O. CONSTITUTIONAL/GEN: normally nourished, in NAD. EYES: conjunctiva normal, PERRLA, EOMI. NECK: thyroid midline, carotids symmetrical. LUNGS: Patient is barrel chested wth expiratory rhonchi/wheezing a prolongation of expiratory phase in both right and left lung humphries. Respiratory effort is mildly increased. CARDIOVASCULAR: RR with significantly diminised heart sounds. GI/ABD: soft without masses, without organomegaly. NEURO: No focal deficits. SKIN: 1.5 cm skin ulcer over the medial aspect of the left 1st MP joint of the foot. MUSC: back is normal in appearance. Extremities are normal in appearance. PSYCH/MENTAL STATUS: Awake and alert. Oriented to place and person. Will carry on a normal conversation. A/P Assessment and Plan 70y male presenting with altered mental status x4 days and lethargy x1 day, hospitalized 07/23/16 for fall, R rib fracture, and R pleural effusion. Problem List: (1) Altered mental status Status: Resolved Plan: Presented to ED extremely lethargic, difficult to rouse, falling asleep during the interview. Several hours later at time of admission, AMS resolved. Pt AAOx3 to person, city/state, and year/month/day+2. AMS likely secondary to acute hypoxia and hypercarbia from rib fracture. Suspect underlying component of dementia (alzheimers vs vascular vs other). CT head negative for acute process. ABG with pH 7.44 and hypercarbia. Trop neg x1. EKG unchanged from previous. -Continue oxygen supplementation, as needed (2) Repeated falls Status: Acute Plan: Hx neuropathy and LE weakness secondary to Levaquin toxicity. Follows with neurologist at home (Dr Maldonado) -PT eval and treat -OOB with assistance (3) Rib fracture Status: Acute Plan: Secondary to fall one week prior onto R side. CT Thorax (07/23): Fracture T5, T6, T10, small hiatal hernia and small R sided plural effusion Plan -Pain control -Ibuprofen 600mg NARGIS -Morphine 1mg IV PRN q4h breakthrough pain 07/24/16 Surprisingly patient reports no significant pain associated with the above noted fractures. Incentive spirometry to be utilized. (4) Acute hypokalemia Status: Acute Plan: History of hypokalemia on last admission secondary to noncompliance with Lasix. This visit, K 2.9. Received KCl 20meq PO and KCl 10meq IV in ED -Re-check K this PM, replete as necessary, goal 3.5+ -EKG: Tachycardic to 110. Frequent PVCs. Marked LAD. No change from previous. 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 Chronic purulent discharge. Likely poor wound healing secondary to significant PAD -Wound care consulted -Change bandage daily (7) COPD (chronic obstructive pulmonary disease) Status: Chronic Plan: 2L home O2. -Continue home Symbicort 2 puff BID -DuoNeb q4h PRN SOB/wheezing -Incentive spirometry -COPD educator consulted (8) Pleural effusion Status: Acute Plan: Per CT thorax -Diuresis, see plan for CHF (9) BPH (benign prostatic hyperplasia) Status: Chronic Plan: -continue home tamsulosin and finasteride (10) Anxiety and depression Status: Chronic Plan: -Continue home Zoloft and Ativan 1mg q8h NARGIS (11) Gout Status: Chronic Plan: Continue home Allopurinol 100mg daily (12) GERD (gastroesophageal reflux disease) Status: Chronic Plan: Continue home Nexium 40mg daily (13) CHF (congestive heart failure) Status: Chronic Plan: BNP elevated at 150. -Continue Aspiring 81mg -Continue home Lasix 40mg daily -Continue home statin -Monitor I/Os (14) CKD (chronic kidney disease) stage 3, GFR 30-59 ml/min Status: Chronic Plan: Baseline Cr 1.4 from visit 2015. Cr 1.4 on admission -Avoid nephrotoxic agents -Renally dose medications (15) Fluids, Electrolytes, Nutrition, Prophylaxis Status: Acute Plan: Fluids: Per PO Electrolytes: hypokalemia, monitor and replete PRN Nutrition: Heart Healthy Diet DVT ppx: Lovenox 30mg SQ daily GI ppx: continue home Nexium OOB: with assistance Problem Qualifiers (1) Altered mental status: Qualified Code: R40.0 - Somnolence (2) Rib fracture: Qualified Code: S22.31XA - Closed fracture of one rib of right side, initial encounter Kaz Sharma MD Jul 24, 2016 09:12
--- NOTE | 2016-07-24 15:25 | HHI.FPPN ---
Subjective Remarks No acute events overnight. Vitals: AFVSS. Borderline tachycardic. Normotensive. Breathing comfortably on 4L NC. Patient has no acute complaints and would like to go home. Still AAO x3. Denies R torso pain from rib fractures, even with deep inspiration. Hypokalemic at 3.0 this AM. Denies chest pain or palpitations. Denies SOB, though breathing heavily with pursed lips and prolonged expiration, requiring more O2 than at home. (Maty Buck MD R1) Objective Vitals Vital Signs Date Time Temp Pulse Resp B/P Pulse Ox O2 Delivery O2 Flow Rate FiO2 07/24/16 14:06 104 07/24/16 13:13 115 07/24/16 12:27 111 07/24/16 12:27 98.2 108 20 118/73 94 07/24/16 11:00 106 07/24/16 10:00 91 07/24/16 09:00 75 07/24/16 08:15 98.0 72 20 128/65 96 07/24/16 08:15 109 07/24/16 08:08 98 Nasal Cannula 2.50 07/24/16 06:00 68 07/24/16 05:00 69 07/24/16 04:00 100 07/24/16 03:05 108 07/24/16 03:04 98.3 101 24 127/68 98 07/24/16 02:00 101 07/24/16 01:00 105 07/24/16 00:00 93 07/23/16 23:15 96 Nasal Cannula 4.00 07/23/16 23:00 98.3 101 24 140/81 94 07/23/16 23:00 110 07/23/16 21:26 99 20 142/80 94 Nasal Cannula 2 07/23/16 19:07 110 20 140/90 94 Nasal Cannula 2 07/23/16 16:03 107 22 117/88 98 Nasal Cannula 3 I/O 07/23/16 07/23/16 07/23/16 07/24/16 07/24/16 07/24/16 07:00 15:00 23:00 07:00 15:00 23:00 Intake Total 420 ml Balance 420 ml Intake Oral 420 ml # Voids 2 (Maty Buck MD R1) Result Diagram: 07/24/16 0620 07/24/16 0620 Imaging Last Impressions Head CT 07/23/16 1057 Signed Impressions: Service Date/Time: June 11:34 - CONCLUSION: 1. Chronic changes with significant periventricular small vessel ischemic demyelination. 2. No acute intracranial process, trauma or fracture. Higinio Mcdonald MD Cervical Spine CT 07/23/16 1057 Signed Impressions: Service Date/Time: June 11:34 - CONCLUSION: Multilevel degenerative change of the cervical spine. No fracture or acute cervical spine abnormality is identified. Jevon Cam MD Chest CT 07/23/16 0000 Signed Impressions: Service Date/Time: June 11:52 - CONCLUSION: 1. Acute fracture through the medial aspect of the right T10 rib. 2. Chronic appearing compression fractures through what I believe is T5 and T6 with a vertebral plana configuration of T5. 3. Line loss in the right hemithorax with bilateral emphysematous changes, nonspecific parenchymal nodular densities in the superior segments of both lower lobes and a small right-sided effusion. 4. Small hiatal hernia. Higinio Mcdonald MD Abdomen/Pelvis CT 07/23/16 0000 Signed Impressions: Service Date/Time: June 11:52 - CONCLUSION: 1. Multiple minimally displaced right-sided rib fractures from 8 through 11 with associated small effusion/hemothorax. No pneumothorax. 2. Extensive diverticular disease throughout the colon without diverticulitis. 3. Prostatic seeds. 4. Small hiatal hernia. Higinio Mcdonald MD Objective Remarks CONST: Elderly male in NAD. Lying on R side, semi-curled. Appears to be positioned uncomfortably. Irritated. DERM: Warm and dry. Bruises in various stages healing on forearms bilaterally, knees, shins. L medina with very prominant scabbing and erythema. HEENT: PERRL. EOMI. MMM. Ptosis R eyelid CV: RRR. No murmurs or gallops. RESP: Barrel chested with expiratory rhonchi/wheezing and prolonged expiration and pursed lips. Nasal canula in place. GI: Abdomen non-tender, non-distended MSK: Moves all four limbs against gravity. 1.5cm skin culer over medial aspect L 1st MP joint with ogden purulent discharge. Covered in bandage c/d/i. NEURO: AAOx3 to person, city/state, year/month/day+2, and reason for hospitalization. Sensation intact to light touch in V1-V3, UE, LE. Able to lift limbs against gravity. PSYCH: Affect appropriate. 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 Discharge Planning 1-2 days pending decreased oxygen requirement, decreased wheezing, and correction hypokalemia SDW: Dr. Sharma, Dr. Trujillo, Dr. Estrada, Dr. Shipley (Maty Buck MD R1) Attending Attestation Patient seen and examined. Case reviewed and discussed with the resident team. Agree with plan of care as discussed with me and documented in the resident note. (Kaz Sharma MD) Problem List: (1) COPD (chronic obstructive pulmonary disease) Status: Chronic Plan: Physical exam with wheezing and poor air movement. Uses 2L home O2. CT thorax visualized small R pleural effusion. Will treat as COPD exacerbation with antibiotics, steroids, bronchodilators, and oxygen supplementation. Plan -Methylprednisolone 125mg IV daily (07/24- ) -Rocephin 100mg IV daily (07/24- ) -Azithromax 500mg PO daily (07/24- ) -Continue home Symbicort 2 puff BID -DuoNeb q6h NARGIS -Albuterol q4h PRN SOB -Incentive spirometry -COPD educator consulted -Tobacco abuse: 1 PPD * 50 years -Smoking cessation counseling provided -Nicotine patch 21mcg daily, remove before bed to avoid bad dreams (2) Repeated falls Status: Chronic Plan: Hx neuropathy and LE weakness secondary to Levaquin toxicity. Able to lift LE against gravity. Sensation intact to light touch b/l. Follows with neurologist at home (Dr Maldonado) -PT eval and treat- recommend discharge to rehab -OOB with assistance (3) Rib fracture Status: Chronic Plan: May be secondary to fall one week prior onto R side or prior fall. CT Thorax (07/23):and CT abdomen with rib fractures 8-11 as well vertebral fractures T5, T6, T10, and -Naproxen 350 q8h NARGIS -Morphine 1mg IV PRN q4h breakthrough pain -Incentive spirometry (4) Altered mental status Status: Resolved Plan: Per ED note, presented with lethargy, difficult to rouse, falling asleep during the interview. Several hours later, at time of family practice evaluation , AMS resolved. AAOx3 CT head negative for acute process. ABG with pH 7.44 and hypercarbia. Trop neg x1. EKG unchanged from previous. AMS thought secondary to acute hypoxia and hypercarbia from rib fracture. Suspect possible underlying component of dementia (alzheimers vs vascular vs other). -Continue oxygen supplementation, as needed -B12, TSH pending -Urine culture pending (5) Acute hypokalemia Status: Acute Plan: Potassium 2.9 on admission. Hypokalemia refractory to KCl 20meq PO and KCl 10meq IV in ED. Has received KCl 40meq PO x2 on 07/24/16. Denies CP/ palpitations. EKG: Tachycardic to 110. Frequent PVCs. Marked LAD. No change from previous. 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 Wound since August 2015. Chronic purulent discharge. Likely poor wound healing secondary to significant PAD -Wound care consulted, change bandage daily (7) Pleural effusion Status: Acute Plan: Per CT thorax -Diuresis, see plan for CHF (8) BPH (benign prostatic hyperplasia) Status: Chronic Plan: -continue home tamsulosin and finasteride (9) Anxiety and depression Status: Chronic Plan: -Continue home Zoloft and Ativan 1mg q8h NARGIS (10) Gout Status: Chronic Plan: Continue home Allopurinol 100mg daily (11) GERD (gastroesophageal reflux disease) Status: Chronic Plan: Continue home Nexium 40mg daily (12) CHF (congestive heart failure) Status: Chronic Plan: BNP elevated at 150 -Continue Aspirin 81mg, Lasix 40mg daily, statin, monitor I/Os (13) CKD (chronic kidney disease) stage 3, GFR 30-59 ml/min Status: Chronic Plan: Baseline Cr 1.4 from visit 2015. Cr 1.4 on admission -Daily BMP -Avoid nephrotoxic agents -Renally dose medications (14) Fluids, Electrolytes, Nutrition, Prophylaxis Status: Acute Plan: Fluids: Per PO Electrolytes: hypokalemia, monitor and replete PRN Nutrition: Heart Healthy Diet DVT ppx: Lovenox 30mg SQ daily (CKD Cr 1.4 baseline) GI ppx: continue home Nexium OOB: with assistance (Maty Buck MD R1) Problem Qualifiers (1) COPD (chronic obstructive pulmonary disease): Qualified Code: J44.1 - Chronic obstructive pulmonary disease with acute exacerbation (2) Rib fracture: Qualified Code: S22.31XA - Closed fracture of one rib of right side, initial encounter (3) Altered mental status: Qualified Code: R40.0 - Somnolence (4) Foot ulcer, left: Qualified Code: L97.522 - Foot ulcer, left, with fat layer exposed (5) BPH (benign prostatic hyperplasia): Qualified Code: N40.0 - Benign prostatic hyperplasia, presence of lower urinary tract symptoms unspecified, unspecified morphology (6) Gout: Qualified Code: M1A.00X0 - Idiopathic chronic gout without tophus, unspecified site (7) GERD (gastroesophageal reflux disease): Qualified Code: K21.9 - Gastroesophageal reflux disease, esophagitis presence not specified (8) CHF (congestive heart failure): Qualified Code: I50.9 - Chronic congestive heart failure, unspecified congestive heart failure type Maty Buck MD R1 Jul 24, 2016 15:25 Kaz Sharma MD Jul 26, 2016 12:56
[2016-07-24] MEDS: POTASSIUM CHLORIDE 20 MEQ CONTROLLED RELEASE TAB PO SCH (15:30)
[2016-07-24 16:41] LABS: MAGNESIUM 1.9 MG/DL (1.5-2.5); POTASSIUM 3.5 MEQ/L (3.5-5.1)
[2016-07-24] MEDS: ATORVASTATIN 10 MG TAB PO SCH (20:17)
[2016-07-24] MEDS ORDERED: REMOVE OLD PATCH TD SCH (21:00)
[2016-07-25] VITALS (16 sets, daily range): BP systolic 106–127; BP diastolic 66–77; PULSE 80–113; RESP 18–22; TEMP 97.5–98.1; O2SAT 95–100
[2016-07-25] MEDS ORDERED: RESP: ALBUTEROL 2.5 MG/IPRATROPIUM 0.5 MG NEB (SCH) ONE (05:02)
[2016-07-25] MEDS: RESP: ALBUTEROL 2.5 MG/IPRATROPIUM 0.5 MG NEB (PRN) NEB ×4 (05:05→15:36)
[2016-07-25] MEDS: LORazepam 1 MG TAB PO SCH ×2 (06:17→13:37)
[2016-07-25] MEDS: NAPROXEN 375 MG TAB PO SCH ×2 (06:17→13:37)
[2016-07-25 06:58] LABS: HEMATOCRIT 36.1 % (39.0-51.0); MEAN CELL VOLUME 93.6 FL (80.0-100.0); MEAN CORPUSCULAR HEMOGLOBIN 32.1 PG (27.0-34.0); MEAN CORPUSCULAR HGB CONC 34.2 % (32.0-36.0); PLATELET COUNT 164 TH/MM3 (150-450); RED BLOOD COUNT 3.85 MIL/MM3 (4.50-5.90); RED CELL DISTRIBUTION WIDTH 14.7 % (11.6-17.2); REVIEW FLAG FINAL; WHITE BLOOD COUNT 5.4 TH/MM3 (4.0-11.0)
[2016-07-25 07:51] LABS: BICARBONATE 32.6 MEQ/L (21.0-32.0); MAGNESIUM 2.1 MG/DL (1.5-2.5); POTASSIUM 3.5 MEQ/L (3.5-5.1)
[2016-07-25] MEDS: SERTRALINE HCL 100 MG TAB PO SCH (08:43)
[2016-07-25] MEDS: PANTOPRAZOLE SOD 40 MG DELAYED RELEASE TAB PO SCH (08:43)
[2016-07-25] MEDS: TAMSULOSIN HCL 0.4 MG CAP PO SCH (08:43)
[2016-07-25] MEDS: AZITHROMYCIN 250 MG TAB PO SCH (08:43)
[2016-07-25] MEDS: FINASTERIDE 5 MG TAB PO SCH (08:44)
[2016-07-25] MEDS: ASPIRIN EC 81 MG TABEC PO SCH (08:44)
[2016-07-25] MEDS: POTASSIUM CHLORIDE 20 MEQ CONTROLLED RELEASE TAB PO SCH (08:44)
[2016-07-25] MEDS: ALLOPURINOL 100 MG TAB PO SCH (08:44)
[2016-07-25] MEDS: FUROSEMIDE 40 MG TAB PO SCH (08:44)
[2016-07-25] MEDS: cefTRIAXone INJ 1,000 MG in SODIUM CHLORIDE 0.9% INJ 100 ML IV SCH (08:45)
[2016-07-25] MEDS: NICOTINE 21 MG/24 HR PATCH TD SCH (08:45)
[2016-07-25] MEDS: BUDESONIDE-FORMOTEROL 160/4.5 MCG INHALER INH SCH (08:46)
[2016-07-25] MEDS ORDERED: methylPREDNISolone SOD SUCC 125 MG/2 ML VIAL IV PUSH SCH (10:00)
--- NOTE | 2016-07-25 11:42 | HHI.FPPN ---
Subjective Remarks No acute issues overnight. Intermittent tachycardia up to 100, the patient remains afebrile and vitals are otherwise stable. He has less requirement for O2 via NC. Currently saturating 96% on 2L NC. Overall, he is feeling better. He would like to go home today. He denies any chest pain, shortness of breath, fever, chills, nausea or vomiting. (Iris Burnham MD R2) Objective Vitals Vital Signs Date Time Temp Pulse Resp B/P Pulse Ox O2 Delivery O2 Flow Rate FiO2 07/25/16 11:05 20 07/25/16 10:18 95 07/25/16 09:44 100 07/25/16 08:26 88 07/25/16 08:26 97.5 80 20 114/73 96 07/25/16 07:40 95 Nasal Cannula 2.50 07/25/16 06:00 86 07/25/16 05:39 94 07/25/16 05:06 97 Nasal Cannula 3.00 07/25/16 04:00 80 07/25/16 04:00 98.0 88 22 127/77 97 07/25/16 03:00 80 07/25/16 00:00 98.1 85 22 113/72 98 07/24/16 20:00 98.1 109 22 122/75 97 07/24/16 18:07 109 07/24/16 17:25 108 07/24/16 16:16 110 07/24/16 16:16 98.5 110 18 108/59 95 07/24/16 15:35 94 Nasal Cannula 2.50 07/24/16 14:06 104 07/24/16 13:13 115 07/24/16 12:27 111 07/24/16 12:27 98.2 108 20 118/73 94 I/O 07/24/16 07/24/16 07/24/16 07/25/16 07/25/16 07/25/16 07:00 15:00 23:00 07:00 15:00 23:00 Intake Total 420 ml 960 ml 880 ml Balance 420 ml 960 ml 880 ml Intake Oral 420 ml 960 ml 880 ml # Voids 2 5 6 # Bowel Movements 1 2 (Iris Burnham MD R2) Result Diagram: 07/25/1616 07/25/1616 Imaging Last Impressions Head CT 07/23/16 1057 Signed Impressions: Service Date/Time: June 11:34 - CONCLUSION: 1. Chronic changes with significant periventricular small vessel ischemic demyelination. 2. No acute intracranial process, trauma or fracture. Higinio Mcdonald MD Cervical Spine CT 07/23/16 1057 Signed Impressions: Service Date/Time: June 11:34 - CONCLUSION: Multilevel degenerative change of the cervical spine. No fracture or acute cervical spine abnormality is identified. Jevon Cam MD Chest CT 07/23/16 0000 Signed Impressions: Service Date/Time: June 11:52 - CONCLUSION: 1. Acute fracture through the medial aspect of the right T10 rib. 2. Chronic appearing compression fractures through what I believe is T5 and T6 with a vertebral plana configuration of T5. 3. Line loss in the right hemithorax with bilateral emphysematous changes, nonspecific parenchymal nodular densities in the superior segments of both lower lobes and a small right-sided effusion. 4. Small hiatal hernia. Higinio Mcdonald MD Abdomen/Pelvis CT 07/23/16 0000 Signed Impressions: Service Date/Time: June 11:52 - CONCLUSION: 1. Multiple minimally displaced right-sided rib fractures from 8 through 11 with associated small effusion/hemothorax. No pneumothorax. 2. Extensive diverticular disease throughout the colon without diverticulitis. 3. Prostatic seeds. 4. Small hiatal hernia. Higinio Mcdonald MD Objective Remarks GENERAL: Well-nourished, well-developed elderly male patient in no acute distress. SKIN: Warm and dry. No rashes or lesions present. 1.5cm pressure ulcer over medial aspect of left 1st MP joint with ogden purulent discharge. Covered in bandage c/d/i. EYES: No scleral icterus. No conjunctival injection or drainage. Pupils equal, round, reactive to light and accommodation. Extraocular movements intact. THROAT: Moist mucous membranes. No erythema or exudate in oropharynx. NECK: Supple, trachea midline. No lymphadenopathy. CARDIOVASCULAR: Regular rate and rhythm without murmurs, gallops, or rubs. Strong radial and pedal pulses. CHEST: Symmetric chest expansion with respiration. RESPIRATORY: Breath sounds clear to auscultation bilaterally. No accessory muscle use. No wheezes today. Better air movement today compared to yesterday, but still decreased breath sounds bilaterally. Less respiratory effort today than yesterday. GASTROINTESTINAL: Abdomen soft, non-tender, nondistended. No masses or hernias. No hepatosplenomegaly. Bowel sounds present. MUSCULOSKELETAL: No cyanosis or edema. No nail changes. BACK: Nontender without obvious deformity. Full ROM. NEURO: Cranial nerves II through XII grossly intact. Good muscle tone. PSYCH: Normal mood and affect. Good eye contact. Good insight and judgment. Normal speech. 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 Discharge Planning Anticipate discharge tomorrow. PT recommends DC to rehab, patient prefers discharge home. Case management assisting with discharge planning. lara Sharma (Iris Burnham MD R2) Attending Attestation Case reviewed and discussed with the resident team. Agree with plan of care as discussed with me and documented in the resident note. (Kaz Sharma MD) Problem List: (1) COPD with exacerbation Status: Acute Plan: Improving. Wheezing has resolved on physical exam, still poor air movement overall On 2L O2 at home. 07/[address] significant for bilateral emphysematous changes, nonspecific parenchymal nodular densities in the superior segments of both lower lobes and a small right-sided effusion Afebrile, no leukocytosis s/p Methylprednisolone 125mg IV daily (07/24-07/25) Plan -Transition to PO Prednisone 40mg PO daily today -Rocephin 1g IV daily (07/24- ) -Azithromax 500mg PO daily (07/24- ) -Continue home Symbicort 2 puff BID -DuoNeb q6h NARGIS -Albuterol q4h PRN SOB -Incentive spirometry -COPD educator consulted -Tobacco abuse: 1 PPD * 50 years -Smoking cessation counseling provided -Nicotine patch 21mcg daily (2) UTI (urinary tract infection) Status: Acute Plan: UA significant for leukocyte esterase Urine culture growing gram-negative alvin, ID and sensitivity pending - Continue Rocephin 1g IV Q24H (started 07/24) (3) Repeated falls Status: Chronic Plan: Hx neuropathy and LE weakness secondary to Levaquin toxicity. Follows with neurologist, Dr Maldonado B12 wnl at 815 TSH wnl at 0.557 -PT eval and treat- recommend discharge to rehab -OOB with assistance (4) Rib fracture Status: Chronic Plan: Likely secondary to falls. CT Chest significant Q fracture through the medial aspect of the right T10 rib, chronic compression fractures at T5 and T6 CT abdomen significant for minimally displaced right-sided rib fractures from 8 through 11 with associated small effusion/hemothorax -Naproxen 350 q8h NARGIS -Morphine 1mg IV PRN q4h breakthrough pain -Incentive spirometry (5) Altered mental status Status: Resolved Plan: Somnolent initially in ED, resolved on admission. CT head negative for acute process. ABG with pH 7.44 and hypercarbia. Trop neg x1. EKG unchanged from previous. 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 Wound since August 2015. Chronic purulent discharge. Likely poor wound healing secondary to significant PAD -Wound care consulted, change bandage daily (7) BPH (benign prostatic hyperplasia) Status: Chronic Plan: -continue home tamsulosin and finasteride (8) Anxiety and depression Status: Chronic Plan: -Continue home Zoloft and Ativan 1mg q8h NARGIS (9) Gout Status: Chronic Plan: Continue home Allopurinol 100mg daily (10) GERD (gastroesophageal reflux disease) Status: Chronic Plan: Continue home Nexium 40mg daily (11) CHF (congestive heart failure) Status: Chronic Plan: Stable. -Continue Aspirin 81mg, Lasix 40mg daily, statin, monitor I/Os (12) Fluids, Electrolytes, Nutrition, Prophylaxis Status: Acute Plan: Fluids: Per PO Electrolytes: wnl, continue to monitor and replete as needed Nutrition: Heart Healthy Diet DVT ppx: Lovenox 40mg SQ daily GI ppx: continue home Nexium OOB: with assistance (Iris Burnham MD R2) Problem Qualifiers (1) UTI (urinary tract infection): Qualified Code: N30.00 - Acute cystitis without hematuria (2) Rib fracture: Qualified Code: S22.31XA - Closed fracture of one rib of right side, initial encounter (3) Altered mental status: Qualified Code: R40.0 - Somnolence (4) Foot ulcer, left: Qualified Code: L97.522 - Foot ulcer, left, with fat layer exposed (5) BPH (benign prostatic hyperplasia): Qualified Code: N40.0 - Benign prostatic hyperplasia, presence of lower urinary tract symptoms unspecified, unspecified morphology (6) Gout: Qualified Code: M1A.00X0 - Idiopathic chronic gout without tophus, unspecified site (7) GERD (gastroesophageal reflux disease): Qualified Code: K21.9 - Gastroesophageal reflux disease, esophagitis presence not specified (8) CHF (congestive heart failure): Qualified Code: I50.9 - Chronic congestive heart failure, unspecified congestive heart failure type Iris Burnham MD R2 Jul 25, 2016 11:42 Kaz Sharma MD Jul 26, 2016 13:13
--- NOTE | 2016-07-25 13:00 | HHI.FF ---
Face to Face Verification Diagnosis: (1) COPD (chronic obstructive pulmonary disease) (2) Repeated falls (3) UTI (urinary tract infection) Physical Therapy Order: Evaluate and Treat Home Health Nursing Order: Medical education CHF education Oxygen administration education Wound care and dressing changes I have seen patient Anthony Nicole on 07/25/16. My clinical findings support the need for the requested home health care services because: Ltd mobility - disease progression Patient has SOB Deconditioned w/ increased weakness Limited ability to care for self Need for psychosocial assistance I certify that my clinical findings support that this patient is homebound because: Hx COPD- exertion dyspnea/weakness Unsteady gait/balance Unsafe to leave home unassisted Iris Burnham MD R2 Jul 25, 2016 13:00
[2016-07-25] MEDS ORDERED: PRED20 PO (13:05)
[2016-07-25] MEDS ORDERED: CEFT500T3 PO (13:05)
--- NOTE | 2016-07-25 13:07 | HHI.DCPOC ---
Discharge Care Plan Diagnosis: (1) COPD with exacerbation (2) UTI (urinary tract infection) (3) Rib fracture Goals to Promote Your Health * To prevent worsening of your condition and complications * To maintain your health at the optimal level Directions to Meet Your Goals Take your medications as prescribed Follow your dietary instruction Follow activity as directed Keep your appointments as scheduled Take your immunizations and boosters as scheduled If your symptoms worsen call your PCP, if no PCP go to Urgent Care Center or Emergency Room Smoking is Dangerous to Your Health. Avoid second hand smoke Call the 24-hour hour crisis hotline for domestic abuse at Iris Burnham MD R2 Jul 25, 2016 13:07
[2016-07-25] MEDS ORDERED: ENOXAPARIN SODIUM 40 MG/0.4 ML SYRINGE SQ SCH (14:00)
[2016-07-25] MEDS ORDERED: OXYGENTANK NAS.CANULA (15:10)
[2016-07-26] MEDS ORDERED: predniSONE 20 MG TAB PO SCH (09:00)
== END 2016-07-25 16:40 | disposition home health service (06) | DRG 184 ==
LOC: NEPC 10:12 → NEDA 13:42 → NEDH 18:50 → HCIN 22:38
PROVIDERS: ADMIT Family Medicine; ATTEND Family Medicine
DX: S22.41XA Multiple fractures of ribs, right side, initial encounter for closed fracture (principal); I13.0 Hypertensive heart and chronic kidney disease with heart failure and stage 1 through stage 4 chronic kidney disease, or unspecified chronic kidney disease; S22.059A Unspecified fracture of T5-T6 vertebra, initial encounter for closed fracture; I50.9 Heart failure, unspecified; J44.1 Chronic obstructive pulmonary disease with (acute) exacerbation; S22.079A Unspecified fracture of T9-T10 vertebra, initial encounter for closed fracture; R41.82 Altered mental status, unspecified; E87.6 Hypokalemia; E86.0 Dehydration; K21.9 Gastro-esophageal reflux disease without esophagitis; G62.9 Polyneuropathy, unspecified; E78.5 Hyperlipidemia, unspecified; L97.529 Non-pressure chronic ulcer of other part of left foot with unspecified severity; H91.90 Unspecified hearing loss, unspecified ear; R09.02 Hypoxemia; R29.6 Repeated falls; I49.3 Ventricular premature depolarization; N40.0 Benign prostatic hyperplasia without lower urinary tract symptoms; N18.3 Chronic kidney disease, stage 3 (moderate); K44.9 Diaphragmatic hernia without obstruction or gangrene; M1A.9XX0 Chronic gout, unspecified, without tophus (tophi); F17.210 Nicotine dependence, cigarettes, uncomplicated; F41.9 Anxiety disorder, unspecified; Y92.000 Kitchen of unspecified non-institutional (private) residence as the place of occurrence of the external cause; W01.0XXA Fall on same level from slipping, tripping and stumbling without subsequent striking against object, initial encounter; Z85.46 Personal history of malignant neoplasm of prostate; Z88.1 Allergy status to other antibiotic agents; Z91.14 Patient's other noncompliance with medication regimen; Z99.81 Dependence on supplemental oxygen
CPT/HCPCS: 36600; 70450; 71250; 72125; 74176; 80048; 80053; 81001; 82140; 82550; 82607; 82805; 83605; 83735; 83880; 84132; 84443; 84484; 85025; 85027; 85610; 85730; 86850; 86900; 86901; 87077; 87086; 87186; 93005; 94150; 94640; 94664; 96360; J0696; J1650; J2930; J3480; J7030; J7040